=== PATIENT | female | born 1995 | race Caucasian/White ===

== ENCOUNTER 2021-04-05 13:38 | Observation (INO) | END 2021-04-05 14:15 | disposition home or self-care (01) | LOC: 1NENULAB | PROVIDERS: ADMIT Obstetrics & Gynecology; ATTEND Obstetrics & Gynecology ==

== ENCOUNTER 2021-06-17 16:09 | Observation (INO) ==
[2021-06-17 17:05] LABS: Bacteria,Urine Few per hpf (None-Few); Bilirubin,Urine Negative (Negative); Blood,Urine Negative (Negative); Clarity,Urine Turbid (Clear); Color,Urine Yellow (Yellow); Glucose,Urine (UA) Normal (Normal); Ketones,Urine Negative (Negative); Leukocyte Esterase,Urine Moderate (Negative); Mucus,Urine Few per lpf (None-Few); Nitrite,Urine Negative (Negative); PH,Urine 6.5 pH Units (5.0-8.0); Protein,Urine Trace mg/dL (Neg-Trace); RBC,Urine 0-3 per hpf (0-3); Specific Gravity,Urine 1.022 (1.010-1.025); Squamous Epithelial Cell,Urine Moderate per hpf (None-Few); Urobilinogen,Urine Normal (Normal); WBC,Urine 0-3 per hpf (0-3)
== END 2021-06-17 18:42 | disposition home or self-care (01) ==
LOC: 1NENULAB
PROVIDERS: ADMIT Obstetrics & Gynecology; ATTEND Obstetrics & Gynecology

== ENCOUNTER → 2021-07-05 22:00 | Observation (INO) ==
[2021-07-05 21:26] LABS: Basophils % 0.2 %; Eosinophils # 0.1 K/mcL (0.0-0.6); Eosinophils % 1.1 %; Hematocrit 34.4 % (35.3-44.9); Hemoglobin 11.2 g/dL (11.5-15.4); Immature Granulocytes % 0.5 % (0-4); Lymphocytes # 1.7 K/mcL (0.6-4.6); Lymphocytes % 17.3 %; Mean Corpuscular HGB Conc 32.6 g/dL (31.6-35.5); Mean Corpuscular Hemoglobin 28.2 pg (28.0-33.3); Mean Corpuscular Volume 86.6 fL (83.0-100.0); Mean Platelet Volume 12.9 fL (9.4-12.4); Monocytes # 0.7 K/mcL (0.0-1.3); Monocytes % 7.1 %; Neutrophils # 7.4 K/mcL (1.6-8.9); Platelet Count 184 K/mcL (140-400); Red Blood Count 3.97 M/mcL (3.82-4.97); Red Cell Distribution Width 13.4 % (11.5-14.5); Segmented Neutrophils % 73.8 %
[2021-07-05 21:35] LABS: Protein/Creatinine Ratio,Urine 0.13 mg/mg (0.00-0.20)
== END | disposition home or self-care (01) ==
LOC: 1NENULAB
PROVIDERS: ADMIT Obstetrics & Gynecology; ATTEND Obstetrics & Gynecology

== ENCOUNTER 2021-07-10 05:45 | Inpatient (IN) ==
[2021-07-10] MEDS ORDERED: *HR* Nalbuphine 10 MG/ML AMPUL IV PRN (05:48)
[2021-07-10] MEDS ORDERED: Metoclopramide 10 MG/2 ML VIAL IVP PRN (05:48)
[2021-07-10] MEDS ORDERED: Famotidine 20 MG/2 ML VIAL IVP PRN (05:48)
[2021-07-10] MEDS ORDERED: Azithromycin 500 MG in 0.9 % Sodium Chloride 250 ML IVPB PRN (05:48)
[2021-07-10] MEDS ORDERED: Naloxone 0.4 MG/ML INJ IVP PRN (05:48)
[2021-07-10] MEDS ORDERED: miSOPROStoL 25 MCG TABLET VG PRN (05:52)
[2021-07-10] MEDS ORDERED: Ringers Solution, Lactated 1,000 ML IVC SCH (06:00)
[2021-07-10] MEDS ORDERED: Ondansetron 4 MG/2 ML VIAL IVP PRN (06:00)
[2021-07-10] MEDS ORDERED: EPHEDrine 50 MG/ML VIAL IVP PRN (06:42)
[2021-07-10] MEDS ORDERED: *HR* FentaNYL (PF) 100 MCG/2 ML VIAL EP ONE (06:42)
[2021-07-10] MEDS ORDERED: Ropivacaine/PF 0.2% 20 ML VIAL EP ONE (06:42)
[2021-07-10] MEDS ORDERED: Epidural Premix (fent/bupiv) 110 ML EP SCH (06:45)
[2021-07-10 07:05] LABS: Influenza A PCR Negative (Negative); Influenza B PCR Negative (Negative); Resp. Syncytial Virus PCR Negative (Negative)
[2021-07-10 07:06] LABS: SARS-CoV-2 by PCR (In House) Negative (Negative)
[2021-07-10 08:10] LABS: Basophils % 0.4 %; Eosinophils # 0.1 K/mcL (0.0-0.6); Eosinophils % 1.1 %; Hematocrit 35.8 % (35.3-44.9); Hemoglobin 11.8 g/dL (11.5-15.4); Immature Granulocytes % 0.5 % (0-4); Lymphocytes # 1.6 K/mcL (0.6-4.6); Lymphocytes % 16.5 %; Mean Corpuscular Hemoglobin 28.6 pg (28.0-33.3); Mean Corpuscular Volume 86.7 fL (83.0-100.0); Mean Platelet Volume 13.1 fL (9.4-12.4); Monocytes # 0.6 K/mcL (0.0-1.3); Monocytes % 6.2 %; Neutrophils # 7.2 K/mcL (1.6-8.9); Platelet Count 184 K/mcL (140-400); Red Blood Count 4.13 M/mcL (3.82-4.97); Red Cell Distribution Width 13.4 % (11.5-14.5); Segmented Neutrophils % 75.3 %; White Blood Count 9.6 K/mcL (4.3-11.1)
[2021-07-10 08:18] LABS: Amphetamine Screen,Urine Negative ng/mL (Cutoff=1000); Barbiturate Screen,Urine Negative ng/mL (Cutoff=200); Benzodiazepines Screen,Urine Negative ng/mL (Cutoff=200); Cannabinoid Screen,Urine Negative ng/mL (Cutoff = 50); Cocaine Screen,Urine Negative ng/mL (Cutoff= 300); Opiate Screen,Urine Negative ng/mL (Cutoff=300); Phencyclidine Screen,Urine Negative ng/mL (Cutoff=25)
[2021-07-10] MEDS ORDERED: Oxytocin 30 UNIT/503 ML BAG IVC SCH (18:30)
[2021-07-11] MEDS ORDERED: Lidocaine/EPI 1:200k 2% PF 20 ML VIAL ONE (01:39)
[2021-07-11] MEDS ORDERED: Sodium Bicarbonate 50 MEQ/50 ML VIAL ONE (01:40)
[2021-07-11] MEDS ORDERED: *HR* Oxytocin 10 UNIT/ML VIAL ONE (01:42)
[2021-07-11] MEDS ORDERED: *HR* Succinylcholine 200 MG/10 ML VIAL IVP ONE (01:51)
[2021-07-11] MEDS ORDERED: Ondansetron 4 MG/2 ML VIAL ONE (01:51)
[2021-07-11] MEDS ORDERED: *HR* FentaNYL (PF) 250 MCG/5 ML VIAL ONE (01:55)
[2021-07-11] MEDS ORDERED: *HR* Morphine Sulfate/PF 10 MG/10 ML AMPUL ONE (01:56)
[2021-07-11] MEDS ORDERED: Ringers Solution, Lactated 1,000 ML ONE ×2 (01:58→02:02)
[2021-07-11] MEDS ORDERED: *HR* Phenylephrine 10 MG/ML VIAL ONE (02:03)
[2021-07-11] MEDS ORDERED: Ketorolac 30 MG/ML VIAL ONE (02:05)
[2021-07-11] MEDS ORDERED: Lidocaine -MPF 2% 5 ML VIAL ONE (02:15)
[2021-07-11] MEDS ORDERED: Promethazine 6.25 MG in Water for inj. (sterile) 20 ML IVPB PRN (03:07)
[2021-07-11] MEDS ORDERED: *HR* HYDROmorphone PF 0.5 MG/0.5 ML SYRINGE IVP PRN (03:07)
[2021-07-11] MEDS ORDERED: Acetaminophen IV 1,000 MG/100 ML BAG IVPB PRN (03:07)
[2021-07-11] MEDS ORDERED: Metoclopramide 10 MG/2 ML VIAL IVP PRN (05:00)
[2021-07-11] MEDS ORDERED: Measles/Mumps/Rubella Vacc 0.5 ML VIAL SQ ONE (05:00)
[2021-07-11] MEDS ORDERED: *HR* OxyCODONE Immed Rel 5 MG TABLET PO PRN (05:00)
[2021-07-11] MEDS ORDERED: Rho Immune Globulin 1,500 UNIT SYRINGE IM ONE ×2 (05:00→11:45)
[2021-07-11] MEDS ORDERED: Ondansetron 4 MG/2 ML VIAL IVP PRN (05:00)
[2021-07-11] MEDS ORDERED: Oxytocin 30 UNIT/503 ML BAG IVC SCH (05:00)
[2021-07-11] MEDS ORDERED: Simethicone 80 MG TAB.CHEW PO PRN (05:00)
[2021-07-11] MEDS ORDERED: Ringers Solution, Lactated 1,000 ML IVC SCH (05:00)
[2021-07-11] MEDS ORDERED: Naloxone 0.4 MG/ML INJ IVP PRN (05:00)
[2021-07-11] MEDS: Ibuprofen 600 MG TABLET PO SCH ×4 (05:48→19:06)
[2021-07-11] MEDS: Acetaminophen 325 MG TABLET PO SCH ×2 (05:48→11:52)
[2021-07-11] MEDS: metroNIDAZOLE 500 MG TABLET PO SCH ×3 (08:40→19:51)
[2021-07-11] MEDS: Prenatal Vit/FA 1 EACH TABLET PO SCH (08:40)
[2021-07-11] MEDS: cephALEXin 500 MG CAPSULE PO SCH ×3 (08:40→19:51)
[2021-07-11] MEDS: *HR* Nalbuphine 10 MG/ML AMPUL IV PRN ×2 (09:13→15:19)
[2021-07-12] MEDS: Ibuprofen 600 MG TABLET PO SCH ×2 (03:35→12:44)
[2021-07-12] MEDS: Acetaminophen 325 MG TABLET PO SCH ×2 (03:36→12:44)
[2021-07-12 04:27] LABS: Basophils % 0.2 %; Eosinophils # 0.1 K/mcL (0.0-0.6); Eosinophils % 0.8 %; Hematocrit 27.8 % (35.3-44.9); Immature Granulocytes % 0.7 % (0-4); Lymphocytes # 2.3 K/mcL (0.6-4.6); Lymphocytes % 18.7 %; Mean Corpuscular Hemoglobin 28.4 pg (28.0-33.3); Mean Corpuscular Volume 88.8 fL (83.0-100.0); Mean Platelet Volume 12.7 fL (9.4-12.4); Monocytes # 0.8 K/mcL (0.0-1.3); Monocytes % 6.7 %; Neutrophils # 8.8 K/mcL (1.6-8.9); Platelet Count 156 K/mcL (140-400); Red Blood Count 3.13 M/mcL (3.82-4.97); Red Cell Distribution Width 13.9 % (11.5-14.5); Segmented Neutrophils % 72.9 %
[2021-07-12 04:29] LABS: Hemoglobin 8.9 g/dL (11.5-15.4)
[2021-07-12 06:40] VITALS: BP 100/63; PULSE 87; TEMP 97.9; O2SAT 96
[2021-07-12] MEDS: cephALEXin 500 MG CAPSULE PO SCH (08:10)
[2021-07-12] MEDS: metroNIDAZOLE 500 MG TABLET PO SCH (08:10)
[2021-07-12] MEDS: Prenatal Vit/FA 1 EACH TABLET PO SCH (08:10)
== END 2021-07-12 14:30 | disposition home or self-care (01) | DRG 788 ==
LOC: 1NENULAB 05:45 → 1NENUOBS 07-11 05:10
PROVIDERS: ADMIT Obstetrics & Gynecology; ATTEND Obstetrics & Gynecology